=== PATIENT | male | born 1970 | race Caucasian/White ===

== ENCOUNTER 2025-06-04 10:33 | Inpatient (IN) | payer OTHER, SELFPAY ==
[2025-06-04] VITALS (9 sets, daily range): BP systolic 124–153; BP diastolic 82–100; PULSE 70–100; RESP 15–20; TEMP 36.4–37.3; O2SAT 97–100; BMI 24.9; BMI 22.9
--- NOTE | 2025-06-04 10:59 | EDS_ITS ---
HPI History of Present Illness Chief Complaint: Substance Abuse Detail of Chief Complaint: Requesting detox Informant: patient Narrative Narrative: 54-year-old male said he drinks 10-12 beers a day. Denies liquor. Denies drug use. He is requesting inpatient detox. He is never had detox before. He has tried to detox himself in the past at home. His last alcohol intake was last night. He denies any recent illnesses. Prior similar symptoms: Yes Recent Illness/Hospitalization: No PFSH PFSH Medical History Tobacco use Seasonal allergies Home Medications ?Medication ?Instructions ?Recorded ?Last Taken ?Type NK 06/04/25 Unknown History Allergy/AdvReac Type Severity Reaction Status Date / Time Sulfa (Sulfonamide Allergy Severe Angioedema Verified 06/04/25 10:35 Antibiotics) Social History Smoking Status: Current every day smoker tobacco type: cigarettes ROS ROS ED ROS Narrative Denies recent illness. Constitutional Constitutional ED: Denies chills or fever(s) Eyes Eyes: Denies blurry vision ENT ENT ED: Denies ear pain Cardiovascular Cardiovascular: Denies chest pain Respiratory/Chest Respiratory/Chest: Denies cough Gastrointestinal Gastrointestinal: Denies abdominal pain Genitourinary Genitourinary ED: Denies dysuria Musculoskeletal Musculoskeletal: Denies arthralgias Neurologic Neurologic: Denies headache(s) Psychiatric Psychiatric: Denies anxiety Endocrine Endocrinology: Denies cold intolerance Hematologic/Lymphatic Hematologic/Lymphatic: Denies easy bleeding, easy bruising or lymphadenopathy Allergic/Immunologic Allergic/Immunologic ED: Denies mouth swelling, tongue swelling or urticaria EXAM Physical Exam Narrative Exam Narrative: Well-appearing middle-aged male. Vital signs stable afebrile. He does not look septic toxic he is in no acute distress. H EENT exam pupils round reactive light. Moist mucous membranes. Neck nontender no lymphadenopathy. Back nontender. Lungs clear to auscultation bilaterally. Heart regular rhythm no murmur. Chest wall and ribs nontender. Abdomen soft nontender. Moving all 4 extremities. Nontender no edema. Normal strength. Normal range of motion. Normal dorsi plantarflexion. Neurologically he is awake alert. Answering questions following commands. He ambulates down the hallway without any difficulty. Const Vital Signs: 06/04/25 10:34 06/04/25 11:30 06/04/25 11:33 Temperature 97.5 F L 98.3 F Temperature Source Temporal Oral Pulse Rate 100 77 74 Respiratory Rate 20 H 16 16 Blood Pressure 151/97 H 153/100 H 153/100 H Blood Pressure Mean 115 117 117 Blood Pressure Source Monitor Blood Pressure Position Semi-Fowlers Blood Pressure Location Right Arm Pulse Ox 100 100 100 Oxygen Delivery Method Room Air Room Air Room Air 06/04/25 12:00 Temperature Temperature Source Pulse Rate 77 Respiratory Rate 16 Blood Pressure 153/92 H Blood Pressure Mean 112 Blood Pressure Source Blood Pressure Position Blood Pressure Location Pulse Ox 100 Oxygen Delivery Method Room Air Positive well nourished and well developed; Negative for cachectic, contractures or unkempt General Appearance ED: well developed and NAD; Negative for unkempt, cachectic, contractures or pallor Nutritional Appearance: Negative for cachectic HEENT Reports moist mucous membranes atraumatic Eyes PERRL and EOMs intact bilaterally Neck no lymphadenopathy, supple and no JVD Lymph Lymphatic: no lymphadenopathy noted Chest Wall inspection of chest normal and palpation of chest normal Resp normal respiratory effort and clear to auscultation bilaterally Cardio regular rate, regular rhythm, S1 normal heart sound, S2 normal heart sound and no murmurs GI soft to palpation, non-tender, non-distended and no masses Palpation: Negative for tender or guarding Back/Spine no CVA tenderness General Back: Negative for CVA tenderness Cervical Spine: Negative for cervical spine tenderness Thoracic Spine / Upper Back: Negative for thoracic spinal tenderness Lumbar Spine / Lower Back: Negative for lumbar spinal tenderness Coccyx: Negative for swelling Extremity General Extremety ED: Negative for edema or tenderness General Extremity: Negative for edema Neuro oriented x3, CN's II-XII intact bilaterally and no sensory deficits noted Sensorium / Orientation: alert, oriented to person, oriented to place and oriented to time Speech: speech normal Motor Exam: strength 5/5 throughout Psych mental status grossly normal and thought process normal Appearance: Negative for unkempt Attitude: No belligerent Mood & Affect: Negative for depressed, anxious or tearful Skin General Skin Exam: Negative for jaundice or pallor Lesions: no lesions Rashes: no rashes MDM MDM MDM Narrative Medical decision making narrative: 54-year-old male history of alcohol abuse requesting inpatient detox. Screening labs to be obtained I will speak to the hospitalist about admission. His exam is benign. Repeat exam patient doing well 12:22. The hospitalist on page for admission. History & Record Review Discussion w/independent historian: Patient Additional record(s) reviewed:: No prior records Lab Data Attestation: I reviewed the patient's lab results. Lab results narrative: CBC is unremarkable. White count of 6. H&H of 15 and 44. Platelets 247. Electrolytes show a gap of 12. Normal BUN and creatinine. Glucose 128. Liver enzymes are normal. Urine tox screen negative. Alcohol negative. Labs: Laboratory Results - last 24 hr 06/04/25 11:12 WBC 6.8 RBC 4.41 L Hgb 15.4 Hct 44.2 MCV 100.2 H MCH 34.9 H MCHC 34.8 RDW Std Deviation 44.6 H RDW Coeff of Gena 12.0 Plt Count 247 MPV 9.4 Immature Gran % (Auto) 0.300 Neut % (Auto) 54.9 Lymph % (Auto) 32.4 [place] % (Auto) 10.1 H Eos % (Auto) 1.6 Baso % (Auto) 0.7 Absolute Neuts (auto) 3.8 Absolute Lymphs (auto) 2.21 Nucleated RBC % 0 Sodium 138 Potassium 4.3 Chloride 102 Carbon Dioxide 24.5 Anion Gap 12 BUN 7 Creatinine 0.89 Estim Creat Clear Calc 89.74 Est GFR (MDRD) Non-Af 102 BUN/Creatinine Ratio 7.7 L Glucose 128 H Calcium 9.4 Total Bilirubin 0.46 AST 18 ALT 11 Alkaline Phosphatase 69 Total Protein 8.0 Albumin 4.8 Globulin 3.2 Albumin/Globulin Ratio 1.5 Urine Opiates Screen NEGATIVE U Buprenorphine Qual NEGATIVE Ur Oxycodone Screen NEGATIVE Urine Methadone Screen NEGATIVE Urine Fentanyl Screen NEGATIVE Ur Barbiturates Screen NEGATIVE Ur Phencyclidine Scrn NEGATIVE Ur Amphetamines Screen NEGATIVE U Benzodiazepines Scrn NEGATIVE Urine Cocaine Screen NEGATIVE U Cannabinoids Screen NEGATIVE Ethyl Alcohol < 10.1 Discharge Plan Dx/Rx/DC Orders Clinical Impression: Alcohol abuse, Admitted to alcohol detoxification center Disposition Disposition: [facility]
[2025-06-04 11:23] LABS: Hematocrit 44.2 % (40-54); Hemoglobin 15.4 g/dL (13.0-16.5); Immature Granulocytes Count 0.020 X10^3/uL (0.0-0.0); Mean Corp Hgb Conc 34.8 g/dL (32-36); Mean Corpuscular Volume 100.2 fL (80-94); Mean Platelet Vol. 9.4 fl (6.2-12.0); NRBC Flagged by Analyzer 0 % (0-5); Platelet Count 247 K/mm3 (150-450); RBC Distribution Width CV 12.0 % (11.6-14.6); RBC Distribution Width SD 44.6 fl (35.1-43.9); Red Blood Count 4.41 M/mm3 (4.6-6.2); White Blood Count 6.8 K/mm3 (4.4-11.0)
--- NOTE | 2025-06-04 11:41 | CM.ED ---
Social Work Date of referral: 06/04/25 Reason for referral: No primary care physician (PCP) on file Referred by: Social Work identification Patient provided consent to social work visit. Publications Inspector provided patient with a written handout on the [facility] as well as a folder of resources for substance abuse follow up once discharged from [facility]; all of which patient accepted and expressed appreciation for. Francine Schrader, LACE SEWER, INFERTILITY MEDICAL ASSISTANT
[2025-06-04 11:51] LABS: Barbiturate Urine NEGATIVE (< 200 ng/mL); Benzodiazepine Urine NEGATIVE (< 200 ng/mL); PCP Urine NEGATIVE (< 25 ng/mL); THC Urine NEGATIVE (< 50 ng/mL)
[2025-06-04 11:52] LABS: Alcohol, Blood (Medical)-Serum < 10.1 mg/dL (<=10.0)
[2025-06-04 11:53] LABS: AST(SGOT) 18 U/L (<=37); Alanine Aminotransfer ALT/SGPT 11 U/L (<=46); Albumin, Serum 4.8 g/dL (3.5-5.0); Alkaline Phosphatase 69 U/L (40-129); Anion Gap 12 (5-15); BUN 7 mg/dL (4-19); BUN/Creat Ratio 7.7 RATIO (10-20); Calcium,Total 9.4 mg/dL (7.6-11.0); Carbon Dioxide 24.5 mmol/L (21.0-32.0); Chloride 102 mmol/L (98-108); Estimated Creatinine Clearance 89.74 ml/min (50-250); Globulin 3.2 g/dL (2.2-4.2); Glucose 128 mg/dL (70-99); Potassium 4.3 mmol/L (3.3-5.1)
[2025-06-04] MEDS: Nicotine (PBKC) 21 MG Patch TD (11:59)
--- NOTE | 2025-06-04 12:48 | PCM.HP.STD ---
HPI - General General Date of Admission: 06/04/25 Date of Service: 06/04/25 Chief Complaint: Alcohol detox HPI Narrative EDITA ROBLES, is a 54 M who presented to [facility] ED on 06/04/2025 for alcohol detox. Patient has no significant past medical history. Lives at home alone. Has never been through alcohol detox before. Drinks 10-12 beers daily. No hard liquor use. Last drink was yesterday evening. Alcohol level less than 10 on admit. States that he typically drinks from 4 PM until bedtime, does not usually drink in the morning. He will have some anxiety in the afternoons prior to drinking alcohol that improves with alcohol intake. No history of alcohol withdrawal seizures. He has tried to wean off alcohol on his own in the past but has not been successful due to anxiety and some tremors. He knows from experience with friends that alcohol detox can have severe medical implications so he wanted to come into the hospital to detox. In the ED he was hypertensive to the 150s systolic, heart rate in the 70s to 80s and normal sinus rhythm, otherwise stable on room air at rest. CBC and CMP were benign. UDS negative. Given desire for detox, hospitalist was contacted for admission. I saw the patient at bedside in the ED. Patient was mildly flushed appearing in the face but otherwise sitting back comfortably in bed, conversing normally, in no acute distress. He reported only mild anxiety currently, no other withdrawal symptoms noted. Denies any other acute pain or discomfort. No other acute concerns at this time. [facility] Medical History (Updated 06/04/25 @ 13:[address] Som Enciso, DO) Tobacco use Seasonal allergies Home Medications ?Medication ?Instructions ?Recorded ?Last Taken ?Type NK 06/04/25 Unknown History Allergy/AdvReac Type Severity Reaction Status Date / Time Sulfa (Sulfonamide Allergy Severe Angioedema Verified 06/04/25 10:35 Antibiotics) Social History Smoking Status: Current every day smoker tobacco type: cigarettes ROS Constitutional Constitutional: Denies chills, fatigue, fever(s) or weakness Cardiovascular Cardiovascular: Denies chest pain Respiratory/Chest Respiratory/Chest: Denies shortness of breath at rest Gastrointestinal Gastrointestinal: Denies abdominal pain Neurologic Neurologic: Denies dizziness, focal weakness, headache(s), numbness, tingling or tremor(s) Vital Signs Vital Signs Vital Signs: 06/04/25 10:34 06/04/25 11:30 06/04/25 11:33 Temperature 97.5 F L 98.3 F Temperature Source Temporal Oral Pulse Rate 100 77 74 Respiratory Rate 20 H 16 16 Blood Pressure 151/97 H 153/100 H 153/100 H Blood Pressure Mean 115 117 117 Blood Pressure Source Monitor Blood Pressure Position Semi-Fowlers Blood Pressure Location Right Arm Pulse Ox 100 100 100 Oxygen Delivery Method Room Air Room Air Room Air 06/04/25 12:00 Temperature Temperature Source Pulse Rate 77 Respiratory Rate 16 Blood Pressure 153/92 H Blood Pressure Mean 112 Blood Pressure Source Blood Pressure Position Blood Pressure Location Pulse Ox 100 Oxygen Delivery Method Room Air Weight Weight: 72.121 kg Body Mass Index (BMI) 24.9 Physical Exam Const alert, oriented x3, no apparent distress and average body habitus Constitutional Narrative: Pleasant middle-age male, mildly anxious appearing but otherwise sitting back comfortably in bed, conversing normally, in no acute distress. General Appearance: cooperative and comfortable HEENT normocephalic, head/scalp atraumatic, hearing grossly normal bilaterally, nasal mucous membranes and turbinates normal and moist oral mucous membranes Eyes PERRL, EOMs intact bilaterally and conjunctivae normal Neck full ROM Chest inspection of chest normal Resp normal respiratory effort, normal air movement, no use of accessory muscles and clear to auscultation bilaterally Cardio regular rate, regular rhythm, no murmurs and peripheral pulses 2+ throughout GI normal to inspection, nondistended, normoactive bowel sounds, soft to palpation, non-tender and non-distended Back/Spine normal ROM Extremity normal to inspection, full ROM and no pedal edema Skin no rashes or lesions noted Psych mental status grossly normal Results Lab / Micro Data 06/04/25 11:12 06/04/25 11:12 Labs: Laboratory Results - last 24 hr 06/04/25 11:12: WBC 6.8, RBC 4.41 L, Hgb 15.4, Hct 44.2, MCV 100.2 H, MCH 34.9 H, MCHC 34.8, RDW Std Deviation 44.6 H, RDW Coeff of Gena 12.0, Plt Count 247, MPV 9.4, Immature Gran % (Auto) 0.300, Neut % (Auto) 54.9, Lymph % (Auto) 32.4, [place] % (Auto) 10.1 H, Eos % (Auto) 1.6, Baso % (Auto) 0.7, Absolute Neuts (auto) 3.8, Absolute Lymphs (auto) 2.21, Nucleated RBC % 0, Sodium 138, Potassium 4.3, Chloride 102, Carbon Dioxide 24.5, Anion Gap 12, BUN 7, Creatinine 0.89, Estim Creat Clear Calc 89.74, Est GFR (MDRD) Non-Af 102, BUN/Creatinine Ratio 7.7 L, Glucose 128 H, Calcium 9.4, Total Bilirubin 0.46, AST 18, ALT 11, Alkaline Phosphatase 69, Total Protein 8.0, Albumin 4.8, Globulin 3.2, Albumin/Globulin Ratio 1.5, Urine Opiates Screen NEGATIVE, U Buprenorphine Qual NEGATIVE, Ur Oxycodone Screen NEGATIVE, Urine Methadone Screen NEGATIVE, Urine Fentanyl Screen NEGATIVE, Ur Barbiturates Screen NEGATIVE, Ur Phencyclidine Scrn NEGATIVE, Ur Amphetamines Screen NEGATIVE, U Benzodiazepines Scrn NEGATIVE, Urine Cocaine Screen NEGATIVE, U Cannabinoids Screen NEGATIVE, Ethyl Alcohol < 10.1 Assessment & Plan Assessment/Plan (1) Alcohol abuse: (2) Desire for detoxification: (3) Tobacco use: PLAN: Plan Patient is a 54-year-old male who presented to [facility] ED on 06/04/2025 for alcohol detox. 1. Alcohol abuse with desire for detox ? Admit under inpatient status to [facility] as a ramp patient. Case management consulted. Drinks 10-12 beers daily, last drink on night prior to admission. Alcohol level negative. Has never been through detox before. Minimal withdrawal symptoms in the ED. Discussed with patient and he would prefer to try medications as needed rather than a fixed taper at this point. WA protocol with as needed Ativan, as well as other as needed medications per alcohol withdrawal order set ordered. Patient is interested in being set up with outpatient therapy on discharge, appreciate case management assistance. 2. Tobacco dependence ? Nicotine patch in place per patient request. Discussed cessation on discharge. DVT prophylaxis: Lovenox CODE STATUS: Full code, verified Expected disposition: TBD Total clinical time spent by myself addressing the patient's medical issues, reviewing all the data, and collaborating with patient's care team: 43 minutes. Charges/Coding Visit Charges Inpatient E&M: 91192 Init Hosp L1
[2025-06-04] MEDS: Nicotine 4mg Gum (PBKC) 4 MG GUM PO ×2 (17:26→19:56)
[2025-06-04] MEDS: 0.9% Saline Lock 10 ML Syringe IV (19:49)
[2025-06-05 05:58] VITALS: BP 110/77; PULSE 97; RESP 16; TEMP 36.6; O2SAT 98
[2025-06-05 07:22] VITALS: O2SAT 97
[2025-06-05] MEDS: Nicotine 4mg Gum (PBKC) 4 MG GUM PO ×3 (08:01→21:18)
[2025-06-05] MEDS: Nicotine (PBKC) 21 MG Patch TD (08:01)
[2025-06-05] MEDS: Thiamine Hydrochloride 100 MG Tablet PO (08:02)
[2025-06-05 08:07] VITALS: BP 126/81; PULSE 78; RESP 16; TEMP 37.1; O2SAT 100
--- NOTE | 2025-06-05 10:57 | PN_ITS ---
Subjective Subjective Patient seen and examined. He had no complaints today. He denies any shakes or tremors, lightheadedness or dizziness or any withdrawal symptoms. He did not want to be on the phenobarb taper and prefers only the as needed CIWA score. Review of systems otherwise negative. Objective Data Objective Data Vital Signs: Vital Signs Temp Pulse Resp BP Pulse Ox O2 Del Method 98.8 F 78 16 126/81 H 100 Room Air 06/05/25 08:07 06/05/25 08:07 06/05/25 08:07 06/05/25 08:07 06/05/25 08:07 06/05/25 08:07 Oxygen Delivery Method Room Air Weight: 151 lb 1 oz Body Mass Index (BMI) 22.9 Intake & Output: Intake and Output for Last 24 Hours 06/03/25 06/04/25 06/05/25 23:59 23:59 23:59 Intake Total 1000 / 1000 500 / 500 Balance 1000 / 1000 500 / 500 Lab / Micro Data 06/04/25 11:12 06/04/25 11:12 Labs: Laboratory Results - last 24 hr 06/04/25 11:12: WBC 6.8, RBC 4.41 L, Hgb 15.4, Hct 44.2, MCV 100.2 H, MCH 34.9 H , MCHC 34.8, RDW Std Deviation 44.6 H, RDW Coeff of Gena 12.0, Plt Count 247, MPV 9.4, Immature Gran % (Auto) 0.300, Neut % (Auto) 54.9, Lymph % (Auto) 32.4, [place] % (Auto) 10.1 H, Eos % (Auto) 1.6, Baso % (Auto) 0.7, Absolute Neuts (auto) 3.8, Absolute Lymphs (auto) 2.21, Nucleated RBC % 0, Sodium 138, Potassium 4.3, Chloride 102, Carbon Dioxide 24.5, Anion Gap 12, BUN 7, Creatinine 0.89, Estim Creat Clear Calc 89.74, Est GFR (MDRD) Non-Af 102, BUN/Creatinine Ratio 7.7 L, G lucose 128 H, Calcium 9.4, Total Bilirubin 0.46, AST 18, ALT 11, Alkaline Phosphatase 69, Total Protein 8.0, Albumin 4.8, Globulin 3.2, Albumin/Globulin Ratio 1.5, Urine Opiates Screen NEGATIVE, U Buprenorphine Qual NEGATIVE, Ur Oxycodone Screen NEGATIVE, Urine Methadone Screen NEGATIVE, Urine Fentanyl Screen NEGATIVE, Ur Barbiturates Screen NEGATIVE, Ur Phencyclidine Scrn NEGATIVE, Ur Amphetamines Screen NEGATIVE, U Benzodiazepines Scrn NEGATIVE, Urine Cocaine Screen NEGATIVE, U Cannabinoids Screen NEGATIVE, Ethyl Alcohol < 10.1 Physical Exam Const alert, oriented x3, no apparent distress and well nourished General Appearance: cooperative and well developed HEENT normocephalic, head/scalp atraumatic and oropharynx normal Eyes EOMs intact bilaterally Neck supple and no JVD Lymph Lymphatic: no lymphedema noted Resp normal respiratory effort, normal air movement and clear to auscultation bilaterally Cardio regular rate, regular rhythm, S1 normal heart sound, S2 normal heart sound and no murmurs GI normal to inspection, nondistended, normoactive bowel sounds, soft to palpation, non-tender and non-distended Extremity normal capillary refill, no clubbing, cyanosis or edema and no calf tenderness General Extremity: no tenderness to palpation of joints or extremities Skin General Skin Exam: no breakdown Neuro no focal motor deficits and no sensory deficits noted Motor Exam: general weakness Psych thought process normal, cooperative and affect normal Appearance: appropriate Assessment & Plan Assessment/Plan (1) Alcohol abuse: (2) Desire for detoxification: PLAN: Plan #Acute alcohol withdrawal * Patient feels better and denies any symptoms of withdrawal. Usually drinks about 10-12 beers daily with his last drink being the night before admission. * Serum alcohol level was less than 10 on admission. * Patient refusing about taper and only wants the as needed medications via the CIWA protocol * Adjunctive meds for symptomatic relief. Monitor CIWA score. * #Nicotine dependence: Counseled to quit. Nicotine patch 21 mg daily as needed DVT prophylaxis: Lovenox Charges/Coding Visit Charges Inpatient E&M: 89015 Subs Hosp L2
[2025-06-05] MEDS: 0.9% Saline Lock 10 ML Syringe IV (14:54)
[2025-06-05 14:56] VITALS: BP 124/82; PULSE 71; RESP 17; TEMP 37; O2SAT 99
[2025-06-05 21:00] VITALS: BP 118/82; PULSE 78; RESP 15; TEMP 36.6; O2SAT 99
[2025-06-05 21:27] VITALS: BP 118/82; PULSE 78; RESP 18; TEMP 36.6; O2SAT 99
[2025-06-06 05:00] VITALS: BP 111/82; PULSE 77; RESP 15; TEMP 36.6; O2SAT 99
[2025-06-06] MEDS: Thiamine Hydrochloride 100 MG Tablet PO (07:59)
[2025-06-06] MEDS: Nicotine (PBKC) 21 MG Patch TD (07:59)
[2025-06-06 08:07] VITALS: BP 120/85; PULSE 73; RESP 18; TEMP 36.5; O2SAT 99
[2025-06-06] MEDS: Nicotine 4mg Gum (PBKC) 4 MG GUM PO ×4 (08:17→20:49)
--- NOTE | 2025-06-06 10:05 | PN_ITS ---
Subjective Subjective Patient seen and examined with his nurse by his bedside. He had no active complaints and had an uneventful night. Review of systems is otherwise negative. He has remained hemodynamically stable. Objective Data Objective Data Vital Signs: Vital Signs Temp Pulse Resp BP Pulse Ox O2 Del Method 97.7 F L 73 18 120/85 H 99 Room Air 06/06/25 08:07 06/06/25 08:07 06/06/25 08:07 06/06/25 08:07 06/06/25 08:07 06/06/25 08:07 Oxygen Delivery Method Room Air Weight: 151 lb 1 oz Body Mass Index (BMI) 22.9 Intake & Output: Intake and Output for Last 24 Hours 06/04/25 06/05/25 06/06/25 23:59 23:59 23:59 Intake Total 1000 / 1000 1000 / 1000 Balance 1000 / 1000 1000 / 1000 Lab / Micro Data 06/04/25 11:12 06/04/25 11:12 Physical Exam Const alert, oriented x3, no apparent distress, average body habitus and well nourished General Appearance: cooperative, comfortable and well developed HEENT normocephalic, head/scalp atraumatic, hearing grossly normal bilaterally, nasal mucous membranes and turbinates normal, moist oral mucous membranes and oropharynx normal Eyes PERRL, EOMs intact bilaterally and conjunctivae normal Neck full ROM, supple and no JVD Lymph Lymphatic: no lymphedema noted Chest inspection of chest normal Resp normal respiratory effort, normal air movement, no use of accessory muscles and clear to auscultation bilaterally Cardio regular rate, regular rhythm, S1 normal heart sound, S2 normal heart sound, no murmurs and peripheral pulses 2+ throughout GI normal to inspection, nondistended, normoactive bowel sounds, soft to palpation, non-tender and non-distended Back/Spine normal ROM Extremity normal to inspection, full ROM, normal capillary refill, no clubbing, cyanosis or edema, no calf tenderness and no pedal edema General Extremity: no tenderness to palpation of joints or extremities Skin no rashes or lesions noted General Skin Exam: no breakdown Neuro no focal motor deficits and no sensory deficits noted Motor Exam: general weakness Psych mental status grossly normal, thought process normal, cooperative and affect normal Appearance: appropriate Assessment & Plan Assessment/Plan (1) Alcohol abuse: (2) Desire for detoxification: PLAN: Plan #Acute alcohol withdrawal * Patient feels better and denies any symptoms of withdrawal. Usually drinks about 10-12 beers daily with his last drink being the night before admission. * Serum alcohol level was less than 10 on admission. * Patient refusing about taper and only wants the as needed medications via the CIWA protocol * Adjunctive meds for symptomatic relief. Monitor CIWA score. * #Nicotine dependence: Counseled to quit. Nicotine patch 21 mg daily as needed DVT prophylaxis: Lovenox DIsposition: for [facility] tomorrow Charges/Coding Visit Charges Inpatient E&M: 70435 Subs Hosp L2
[2025-06-06 14:07] VITALS: BP 111/67; PULSE 81; RESP 18; TEMP 36.6; O2SAT 98
--- NOTE | 2025-06-06 19:22 | ADDICTION ---
Pt was met with for RAMP assessment and to complete the AUDIT, DUDIT, ASAM, MSE, CHRIS's, and DC Plan. Pt presented as cooperative but states that he is not interested in any residential or inpatient tx at this time. Pt admits that he just got his third FRANCO and he is awaiting court hearings. He reports that he is thinking about following up with outpatient tx. Pt was provided psychoeducation on his high risk of relapse and he was given a packet of resources for various providers and information on substance use disorder, tx and recovery. Pt states that he isn't sure where he'll go d/t concerns about lack of insurance and finances. Pt was encouraged to contact [facility] for assistance with Medicaid and pt states he will think about doing a walk in assessment with [facility] the same day he is discharged from [facility].
[2025-06-06 20:20] VITALS: BP 123/92; PULSE 75; RESP 18; TEMP 36.8; O2SAT 98
[2025-06-07] MEDS: Nicotine 4mg Gum (PBKC) 4 MG GUM PO (03:12)
[2025-06-07 03:14] VITALS: BP 110/81; PULSE 63; RESP 18; TEMP 36.4; O2SAT 100
[2025-06-07 07:28] VITALS: BP 111/80; PULSE 80; RESP 18; TEMP 36.6; O2SAT 100
[2025-06-07] MEDS: Nicotine (PBKC) 21 MG Patch TD (07:32)
[2025-06-07] MEDS: Thiamine Hydrochloride 100 MG Tablet PO (07:32)
--- NOTE | 2025-06-07 08:22 | ADDICTION ---
clinician met with patient to discuss tx options. patient presented as alert, cooperative, engaged and motivated for tx. patient reported his discharge plans include attending [facility] assessment clinic today upon release. clinician discussed logistics of this with patient. patient presented with good personal insight; he acknowledged the need for AoD tx to address his alcohol abuse. clinician advised patient to follow through with his discharge plan.
[2025-06-07 09:19] VITALS: O2SAT 99
--- NOTE | 2025-06-07 11:16 | DCINST_ITS ---
Discharge Instructions DC O2, CPAP, BIPAP needs Home O2 Discharge instructions: No Dressing / Incision Discharge Activity: Return to Normal Activity Weight Bearing Status: Weight bearing as tolerated Dressing / Incision Call your doctor if you observe: Fever of 101 or Higher, Shortness of breath, Dizziness, Swelling in the ankles and Chest pain Follow Up Care Test Results: Test results from this visit will be discussed in further detail at your follow- up appointment, if applicable. Discharge Plan Admission Admit Date/Time: 06/04/25 12:52 Primary Reason for Your Visit: acute alcohol withdrawal Attending Provider: Ann Marie Kennedy Primary Care Provider: Care Physician,No Primary Consulting Providers: Som Enciso Instructions Patient Instructions: Alcohol Withdrawal: What to Expect, ED Withdrawal Alcohol Discharge Orders/Prescriptions Prescriptions: No Action NK Referrals / Follow Up: Care Physician,No Primary [Primary Care Provider] - Disposition Disposition (needs filled in before D/C Order can be placed): Home, Self Care
--- NOTE | 2025-06-07 11:17 | DS.PCM_ITS ---
Providers Date of Admission: 06/04/25 Date of Discharge: 06/07/25 Primary Care Physician: No Primary Care Phys Reason For Visit: ALCOHOL DETOX Diagnosis Discharge Diagnosis (1) Alcohol abuse: Status: Acute Code(s): F10.10 - Alcohol abuse, uncomplicated (2) Desire for detoxification: Status: Acute Plan #Acute alcohol withdrawal * Patient feels better and denies any symptoms of withdrawal. Usually drinks about 10-12 beers daily with his last drink being the night before admission. * Serum alcohol level was less than 10 on admission. * Patient refusing about taper and only wants the as needed medications via the CIWA protocol * Adjunctive meds for symptomatic relief. Monitor CIWA score. * #Nicotine dependence: Counseled to quit. Nicotine patch 21 mg daily as needed DVT prophylaxis: Lovenox DIsposition: for likey dc tomorrow Medications at Discharge Home Medications NK 06/04/25 Hospital Course Operations None Procedures None Summary of Care Provided Minutes Spent on Discharge: 45 Hospital Course: Patient is a 54-year-old male with past medical history as outlined was admitted to the ED on 06/04/2025. Patient drank 10-12 beers daily and his last drink was the evening before admission. He said he usually drank from 4 PM till bedtime. He did not have a history of any alcohol withdrawal seizures. He had tried to wean off of alcohol in the past but had not been successful due to anxiety and tremors. He was admitted to be managed for acute alcohol detox. Urine tox was negative. He was admitted and managed for acute alcohol detox with potential for withdrawal. He was placed on the alcohol withdrawal protocol with phenobarbital. Patient however feels phenobarbital and said he only wanted the as needed Ativan as he wanted to pull through the detox on his own. He tolerated the 3-day detox process and remained stable. He was discharged home on 06/08/2025. He is follow-up with his primary care doctor within 1 to 2 weeks. Patient seen and examined prior to discharge. He had no complaints. He had an uneventful night. Review of systems otherwise negative. Labs and vitals reviewed. Home medication reviewed and reconciled. Physical Exam Const alert, oriented x3, no apparent distress, average body habitus and well nourished Constitutional Narrative: General Appearance: cooperative and comfortable HEENT normocephalic, head/scalp atraumatic, hearing grossly normal bilaterally and moist oral mucous membranes Eyes PERRL, EOMs intact bilaterally and conjunctivae normal Neck full ROM, supple and no JVD Lymph Lymphatic: no lymphedema noted Chest inspection of chest normal Resp normal respiratory effort, normal air movement, no use of accessory muscles and clear to auscultation bilaterally Cardio regular rate, regular rhythm, S1 normal heart sound, S2 normal heart sound, no murmurs and peripheral pulses 2+ throughout GI normal to inspection, nondistended, normoactive bowel sounds, soft to palpation, non-tender and non-distended Back/Spine normal ROM Extremity normal to inspection, full ROM, normal capillary refill and no clubbing, cyanosis or edema General Extremity: no tenderness to palpation of joints or extremities Skin no rashes or lesions noted General Skin Exam: no breakdown Neuro oriented x3 and moves all extremities Sensorium / Orientation: awake and alert Motor Exam: general weakness Psych mental status grossly normal, thought process normal, cooperative and affect normal Appearance: appropriate Weight / BMI Weight Weight: 151 lb 1 oz Body Mass Index (BMI) 22.9 ABG / Lab / Microbiology Data 06/04/25 11:12 06/04/25 11:12 D/C Instructions Discharge Activity: Return to Normal Activity Weight Bearing Status: Weight bearing as tolerated Call your doctor if you observe: Fever of 101 or Higher, Shortness of breath, Dizziness, Swelling in the ankles and Chest pain DC O2, CPAP, BIPAP Needs Home O2 Discharge instructions: No DC home with Oxygen: No Meaningful Use Info Meaningful Use Meaningful Use Diagnoses (Choose all that apply): None applicable Discharge Plan Admission Admit Date/Time: 06/04/25 12:52 Primary Reason for Your Visit: acute alcohol withdrawal Attending Provider: Ann Marie Kennedy Primary Care Provider: Care Physician,No Primary Consulting Providers: Som Enciso Instructions Patient Instructions: Alcohol Withdrawal: What to Expect, ED Withdrawal Alcohol Discharge Orders/Prescriptions Prescriptions: No Action NK Referrals / Follow Up: Care Physician,No Primary [Primary Care Provider] - Disposition Disposition (needs filled in before D/C Order can be placed): Home, Self Care Charges/Coding Visit Charges Inpatient E&M: 19020 Disch Hosp >30min
== END 2025-06-07 12:15 | disposition home or self-care (01) | DRG 897 ==
LOC: ED 11:28 → MS3 13:14
PROVIDERS: Admitting Provider Hospitalist; Emergency Provider Emergency Medicine; Visit Provider Student in an Organized Health Care Education/Training Program
DX: F10.239 Alcohol dependence with withdrawal, unspecified (principal); F17.210 Nicotine dependence, cigarettes, uncomplicated; Y90.0 Blood alcohol level of less than 20 mg/100 ml
CPT/HCPCS: 80053; 80307; 82077; 85025; 99285; A4216